=== PATIENT | male | born 1990 | race African-American/Black ===

== ENCOUNTER 2018-06-27 01:55 | Emergency (ER) | payer BC, SELFPAY ==
[2018-06-27 22:43] LABS: Chlamydia by PCR Not Detected (NotDetected); GC by PCR Not Detected (NotDetected)
== END 2018-06-27 03:23 | disposition home or self-care (01) ==
LOC: ERS 01:55
DX: L02.214 Cutaneous abscess of groin (principal); F17.210 Nicotine dependence, cigarettes, uncomplicated
CPT/HCPCS: 10061; 87491; 87591